=== PATIENT | female | born 1940 | race Caucasian/White ===

== ENCOUNTER 2020-05-29 07:53 | Inpatient (IN) | payer OTHER, MEDICARE ==
[~2020-05-29] VITALS: Ht 162.6 cm; Wt 52.6 kg
[2020-05-29 08:07] VITALS: Ht 162.6 cm; Wt 52.6 kg
[2020-05-29 08:51] LABS: BASOPHIL % 0.6 % (0.2-1.3); PLATELET COUNT 209 x10^3mcL (179-408)
[2020-05-29 08:52] LABS: RED CELL DISTRIBUTION WIDTH 14.9 % (12.3-17.7)
[2020-05-29 09:56] LABS: ALKALINE PHOSPHATASE 92 U/L (46-116); ALT/SGPT 18 U/L (14-59); AST/SGOT 22 U/L (15-37); BILIRUBIN TOTAL 0.3 mg/dL (0.20-1.00); CALCIUM 10.6 mg/dL (8.5-10.1); CARBON DIOXIDE 32.1 mmol/L (21-32); CHLORIDE SERUM 97 mmol/L (98-107); CREATININE SERUM 0.9 mg/dL (0.6-1.0); LIPASE 68 IU/L (73-393); POTASSIUM SERUM 4.1 mmol/L (3.5-5.1); SODIUM SERUM 135 mmol/L (136-145)
[2020-05-29 09:57] LABS: TOTAL PROTEIN, SERUM 8.6 g/dL (6.4-8.2)
[2020-05-29 09:58] LABS: microscopic required? NO
[2020-05-29 09:59] LABS: GLUCOSE SERUM 691 mg/dL (74-106)
[2020-05-29 10:21] LABS: UA SPECIFIC GRAVITY 1.025 (1.005-1.035); urine erythrocyte NEGATIVE (NEGATIVE)
[2020-05-29] MEDS ORDERED: PROMETHAZI6.25 MG/5 PO (12:09)
[2020-05-29] MEDS ORDERED: FORTAMET500 M1 PO (12:09)
[2020-05-29] MEDS ORDERED: OXYBUTYNIN5 M1 PO (12:09)
[2020-05-29 13:37] VITALS: BP 138/79
[2020-05-29 16:04] VITALS: BP 114/75
[2020-05-29 19:43] VITALS: BP 91/53
[2020-05-30 04:58] VITALS: BP 123/60
[2020-05-30 07:22] LABS: BASOPHIL % 0.8 % (0.2-1.3); PLATELET COUNT 131 x10^3mcL (179-408)
[2020-05-30 07:37] LABS: CALCIUM 9.6 mg/dL (8.5-10.1); CARBON DIOXIDE 30.6 mmol/L (21-32); CHLORIDE SERUM 100 mmol/L (98-107); CREATININE SERUM 0.6 mg/dL (0.6-1.0); GLUCOSE SERUM 108 mg/dL (74-106); MAGNESIUM 2.1 mg/dL (1.8-2.4); PHOSPHOROUS 2.2 mg/dL (2.5-4.9); SODIUM SERUM 136 mmol/L (136-145)
[2020-05-30 07:41] LABS: RED CELL DISTRIBUTION WIDTH 14.9 % (12.3-17.7)
[2020-05-30 08:17] VITALS: BP 131/71
[2020-05-30 08:23] VITALS: BP 117/66
[2020-05-30 11:58] VITALS: BP 159/85
[2020-05-30 13:13] VITALS: BP 159/85
[2020-05-30 16:01] VITALS: BP 136/58
== END 2020-05-30 19:43 | disposition home or self-care (01) | DRG 420 ==
LOC: ED 07:53 → DU 11:21
PROVIDERS: Emergency Medicine; ADMIT Hospitalist; ATTEND Hospitalist
DX: E11.00 Type 2 diabetes mellitus with hyperosmolarity without nonketotic hyperglycemic-hyperosmolar coma (NKHHC) (principal); E86.0 Dehydration; F03.90 Unspecified dementia, unspecified severity, without behavioral disturbance, psychotic disturbance, mood disturbance, and anxiety; I10 Essential (primary) hypertension; Z20.822 Contact with and (suspected) exposure to COVID-19
CPT/HCPCS: 36600; 82962; 97116-GP; G0378; J1644; J2405; J7030